=== PATIENT | male | born 1960 | race Caucasian/White ===

== ENCOUNTER → 2017-01-13 | Outpatient (CLI) | payer BC ==
[~2017-01-13] MED LIST: AMBIEN PO; AMBIEN10 MG PO; ASPIRIN EC81 M1 PO; ASPIRIN PO; ATENOLOL PO; BP MED; BUSPAR PO; BYSTOLIC; CIPRO PO; COMPAZINE10 MG PO; COUMADIN PO; CRESTOR PO; DICLOFENAC PO; ELOCON 0.1% OIN15 GM EXT; FLEXERIL PO; HCTZ PO; HUMIRA; IBUPROFEN800 MG PO; ISMO20 MG PO; LIPITOR; LISINOPRIL PO; LORTAB 10/500 T1 TAB PO; LORTAB 7.5-5001 TAB PO; METOPROLOL TAR25 MG PO; METRONIDAZOLE PO; NITROGYLCERIN SUBLINGUAL; NO MEDICATIONS; PLAVIX; PRILOSEC PO; SIMVASTATIN10 MG PO; TAZORAC; TESTOSTERO100 MG/1 M IM; TOPROL XL PO; TYLOX 5/500 CAP1 CAP PO; VIAGRA PO; WELLBUTRIN PO; ZOCOR PO; ZOCOR20 MG PO; ZOLOFT PO
[2017-01-13 14:06] LABS: BASOPHIL# 0.1 X10e3 (0-0.3); BASOPHIL% 0.9 % (0-2.5); EOSINOPHIL# 0.2 X10e3 (0-0.7); EOSINOPHIL% 2.3 % (0.0-7.0); HEMOGLOBIN 13.6 gm/dL (13.0-16.0); LYMPHOCYTE# 1.5 X10e3 (1.0-3.5); LYMPHOCYTE% 23.3 % (17.0-45.0); MEAN CORPUSCULAR HEMOGLOBIN 27.2 PG (28-34); MEAN CORPUSCULAR HGB CONC 32.3 g/dL (30-36); MEAN PLATELET VOLUME 8.2 FL (6.5-11.5); MONOCYTE# 0.6 X10e3 (0-1.0); MONOCYTE% 8.6 % (3.0-12.0); NEUTROPHIL# 4.2 X10e3 (1.5-7.1); NEUTROPHIL% 64.9 % (40-75); PLATELET COUNT 209 X10e3 (140-420); RED CELL DISTRIBUTION WIDTH 15.7 % (11.0-15.5); WHITE BLOOD COUNT 6.5 X10e3 (4.0-10.5)
[2017-01-13 14:12] LABS: DIFF IND NO
[2017-01-13 14:37] LABS: ALBUMIN SERUM 4.4 g/dL (3.5-5.0); BILIRUBIN, DIRECT 0.1 mg/dL (0.0-0.2); BILIRUBIN,INDIRECT 0.9 mg/dL (0.0-0.9); PROTEIN TOTAL SERUM 7.2 g/dL (6.0-8.3)
[2017-01-16 00:41] LABS: NIL 0.02 IU/mL (()); QUANTIFERON NEGATIVE (Negative)
[2017-01-16 07:27] LABS: HEP B SURFACE AG Nonreactive (Nonreactive); HEP C AB (HEPPAN) Nonreactive (Nonreactive); HEP C AB SIGNAL TO CUTOFF 0.03 ratio (<1.00); HEPATITIS B SURFACE ANTIBODY <5 mIU/mL (>=10)
== END | disposition home or self-care (01) ==
LOC: CLAB 12:58
PROVIDERS: Specialist
DX: L40.0 Psoriasis vulgaris (principal)
CPT/HCPCS: 36415; 80048; 80076; 85025; 86480; 86704; 86706; 86803; 87340

== ENCOUNTER 2017-02-01 21:52 | Emergency (ER) | payer BC ==
[~2017-02-01 21:52] MED LIST changes: -AMBIEN10 MG PO; -ASPIRIN EC81 M1 PO; -ELOCON 0.1% OIN15 GM EXT; -IBUPROFEN800 MG PO; -SIMVASTATIN10 MG PO; -TAZORAC; -TESTOSTERO100 MG/1 M IM
[2017-03-03] MEDS ORDERED: ASPIRIN EC81 M1 PO (10:52)
[2017-03-03] MEDS ORDERED: IBUPROFEN800 MG PO (10:52)
[2017-03-03] MEDS ORDERED: SIMVASTATIN10 MG PO (10:53)
[2017-03-03] MEDS ORDERED: ELOCON 0.1% OIN15 GM EXT (10:53)
[2017-03-03] MEDS ORDERED: TAZORAC (10:54)
[2017-03-03] MEDS ORDERED: TESTOSTERO100 MG/1 M IM (10:55)
[2017-03-03] MEDS ORDERED: VIAGRA PO (10:56)
[2017-03-03] MEDS ORDERED: AMBIEN10 MG PO (10:57)
== END 2017-02-01 22:38 | disposition left against medical advice (07) ==
LOC: CED 21:52
DX: Z53.21 Procedure and treatment not carried out due to patient leaving prior to being seen by health care provider (principal)

== ENCOUNTER 2017-02-01 22:17 | Emergency (ER) | payer BC ==
[2017-03-03] MEDS ORDERED: ASPIRIN EC81 M1 PO (10:52)
[2017-03-03] MEDS ORDERED: IBUPROFEN800 MG PO (10:52)
[2017-03-03] MEDS ORDERED: SIMVASTATIN10 MG PO (10:53)
[2017-03-03] MEDS ORDERED: ELOCON 0.1% OIN15 GM EXT (10:53)
[2017-03-03] MEDS ORDERED: TAZORAC (10:54)
[2017-03-03] MEDS ORDERED: TESTOSTERO100 MG/1 M IM (10:55)
[2017-03-03] MEDS ORDERED: VIAGRA PO (10:56)
[2017-03-03] MEDS ORDERED: AMBIEN10 MG PO (10:57)
== END 2017-02-01 23:59 | disposition left against medical advice (07) ==
LOC: SED 22:17
DX: Z53.21 Procedure and treatment not carried out due to patient leaving prior to being seen by health care provider (principal)

== ENCOUNTER → 2017-03-03 | Day surgery (SDC) | payer BC ==
[~2017-03-03] MED LIST changes: +AMBIEN10 MG PO; +ASPIRIN EC81 M1 PO; +ELOCON 0.1% OIN15 GM EXT; +IBUPROFEN800 MG PO; +SIMVASTATIN10 MG PO; +TAZORAC; +TESTOSTERO100 MG/1 M IM
--- NOTE | ~2017-03-03 | OR ---
Unit #: [id number] #: [id number] Patient: MYLA ELAM [id number] [address] [place], [place] [address] [id number] O MR#: [id number] NAME: MYLA ELAM ROOM: Date of Procedure: 03/03/2017 Admission Date: 03/03/2017 Surgeon: Thanh Johnson M.D. : 1960 Attending Physician: Thanh Johnson M.D. OPERATIVE REPORT PREOPERATIVE DIAGNOSIS Screening colonoscopy. POSTOPERATIVE DIAGNOSIS Screening colonoscopy. PROCEDURE PERFORMED Colonoscopy to cecum. ANESTHESIA Monitored anesthesia care. FINDINGS The patient had a normal colonoscopy to cecum. SPECIMENS None. COMPLICATIONS None apparent. CONDITION The patient tolerated the procedure well. INDICATIONS FOR PROCEDURE The patient is a 56-year-old white male, who presents at this time for screening colonoscopy. DESCRIPTION OF PROCEDURE After obtaining informed consent, the patient was brought to the endoscopy suite. After adequate monitored anesthesia care, had the colonoscope placed through the anus and advanced to the level of the cecum without difficulty with lumen always in view. The cecum was normal as well as the ileocecal valve. The ascending colon was normal as was the hepatic flexure, transverse colon, splenic flexure, descending colon, sigmoid colon, and rectum. On retroflexing in the rectum to the anorectal junction, there was no obvious abnormality seen. The scope was removed without difficulty. After the colonoscope was removed, digital examination was performed. There was good sphincter tone. No masses palpable. The patient went from the endoscopy suite to the recovery area in stable condition. Unit #: [id number] #: [id number] Patient: MYLA ELAM RECOMMENDATIONS High-fiber diet, lots of liquids, tucks or wipes p.r.n. Follow up in our office as needed. Dictated by... Sarah Barraza/kaitlynn TD: 03/04/2017 06:13 JOB #: [id number] CC: [facility] Norberto Hudson M.D. OPERATIVE REPORT Page 1 of 1 X Thanh Johnson MD PROCEDURE OPERATIVE NOTE
== END | disposition home or self-care (01) ==
LOC: COPS 07:30
PROVIDERS: Surgery
PROC: 0DJD8ZZ Inspection of Lower Intestinal Tract, Via Natural or Artificial Opening Endoscopic (ICD-10-PCS; principal; 2017-03-03 12:30)
DX: Z12.11 Encounter for screening for malignant neoplasm of colon (principal); K43.9 Ventral hernia without obstruction or gangrene; J44.9 Chronic obstructive pulmonary disease, unspecified; I25.10 Atherosclerotic heart disease of native coronary artery without angina pectoris; Z95.5 Presence of coronary angioplasty implant and graft; Z95.1 Presence of aortocoronary bypass graft; I50.9 Heart failure, unspecified; E78.00 Pure hypercholesterolemia, unspecified; E29.1 Testicular hypofunction; Z79.899 Other long term (current) drug therapy; Z79.1 Long term (current) use of non-steroidal anti-inflammatories (NSAID); Z79.82 Long term (current) use of aspirin; Z98.890 Other specified postprocedural states; Z87.442 Personal history of urinary calculi; Z87.891 Personal history of nicotine dependence; Z82.3 Family history of stroke; Z98.52 Vasectomy status; Z88.0 Allergy status to penicillin; Z88.8 Allergy status to other drugs, medicaments and biological substances
CPT/HCPCS: J2250